=== PATIENT | male | born 1955 | race Caucasian/White ===

== ENCOUNTER 2016-12-01 14:08 | Emergency (ER) | payer OTHER, MEDICAID ==
[~2016-12-01] VITALS: Ht 182.9 cm; Wt 93.0 kg
[~2016-12-01 14:08] MED LIST: FAM20T PO; GLIP-115 PO; HYDR-4663 PO; METF850T PO; URSO300C4 PO
[2016-12-01 16:06] VITALS: BP 152/91
[2016-12-01] MEDS ORDERED: LIDOCAINE 1% HCL (LOCAL ANESTH.) INJ 20ML MDV IJ ONE (16:45)
[2016-12-01] MEDS ORDERED: cefTRIAXone SOD 1,000 MG VL IM ONE (17:15)
[2016-12-01] MEDS ORDERED: HYDROcodone-ACET 10/325MG TAB PO ONE (17:30)
== END 2016-12-01 18:36 | disposition home or self-care (01) ==
LOC: ER 14:09
DX: L02.11 Cutaneous abscess of neck (principal); E11.9 Type 2 diabetes mellitus without complications; I10 Essential (primary) hypertension; B19.20 Unspecified viral hepatitis C without hepatic coma; F17.210 Nicotine dependence, cigarettes, uncomplicated; Z79.899 Other long term (current) drug therapy; Z90.49 Acquired absence of other specified parts of digestive tract
CPT/HCPCS: 10060; 70490; 82962; 96372; 99284; J0696; J2001